=== PATIENT | male | born 1955 | race Caucasian/White ===

== ENCOUNTER 2018-03-13 09:46 | Emergency (ER) | payer OTHER ==
[2018-03-13 09:52] VITALS: RESP 18
--- NOTE | 2018-03-13 10:34 | ED ---
General Adult HPI - General Chief complaint: Extremity Injury, Upper Stated complaint: lt shoulder injury Time Seen by Provider: 03/13/18 09:55 Source: patient, RN notes reviewed, old records reviewed Mode of arrival: ambulatory Limitations: no limitations - History of Present Illness Initial comments: 62-year-old male patient with past medical history of left proximal biceps tendon repair presents to ED after sustaining acute left upper arm injury. Patient states that yesterday he picked up a ladder and felt a pop in his left bicep region. Patient currently has pain in left bicep region. Patient has pain with flexion motions of left arm, feels as if he has decreased strength in left arm. Patient has no other complaints. Denies paresthesias. Patient stated no other injury. Patient denies chest pain, shortness of breath headache, change in vision, nausea vomiting diarrhea, fever chills. Systemic: Pt denies fatigue, myalgia, fever/chills, rash. Pt denies weakness, night sweats, weight loss. Neuro: Pt denies headache, visual disturbances, syncope or pre-syncope. HEENT: Pt denies ocular discharge or irritation, otalgia, rhinorrhea, pharyngitis or notable lymphadenopathy. Cardiopulmonary: Pt denies chest pain, SOB, heart palpitations, dyspnea on exertion. Abdominal/GI: Pt denies abdominal pain, n/v/d. : Pt denies dysuria, burning w/ urination, frequency/urgency. Denies new onset urinary or bowel incontinence. MSK: Pt denies myalgia. - Related Data Home Medications Medication Instructions Recorded Confirmed Naproxen Sodium [Aleve] 220 mg PO DAILY PRN 03/13/18 03/13/18 Allergies Allergy/AdvReac Type Severity Reaction Status Date / Time Penicillins AdvReac Unknown Verified 03/13/18 10:42 Review of Systems ROS Statement: Those systems with pertinent positive or pertinent negative responses have been documented in the HPI. ROS Other: All systems not noted in ROS Statement are negative. Past Medical History Past Medical History: Cancer Additional Past Medical History / Comment(s): Prostate Cancer 07/26 History of Any Multi-Drug Resistant Organisms: None Reported Past Surgical History: Orthopedic Surgery Additional Past Surgical History / Comment(s): vasectomy, carpal tunnel surgery , prostate cancer surgery Past Psychological History: No Psychological Hx Reported Smoking Status: Never smoker Past Alcohol Use History: Occasional Past Drug Use History: None Reported General Exam - General Exam Comments Initial Comments: Constitutional: NAD, AOX3, Pt has pleasant affect. HEENT: NC/AT, trachea midline, neck supple, no lymphadenopathy. Posterior pharynx non erythematous, without exudates. External ears appear normal, without discharge. Mucous membranes moist. Eyes PERRLA, EOM intact. There is no scleral icterus. No pallor noted. Cardiopulmonary: RRR, no murmurs, rubs or gallops, no JVD noted. Lungs CTAB in anterior and posterior holcomb. No peripheral edema. Abdominal exam: Abdomen soft and non-distended. Abdomen non-tender to palpation in all 4 quadrants. Bowel sounds active in LLQ. No hepatosplenomegaly. Neuro: CN II-XII grossly intact. MSK: Mild TTP to L belly of biceps muscle. No point tenderness at proximal or distal attachment. No echymosis. Full ROM and 5/5 stregnth at shoulder, full sensation. Full flexion/extension at elbow, pain with resisted flexion. Full sensation intact. Radial pulse +2 bilaterally. Capillary refill <2 seconds bilaterally. Limitations: no limitations Course Vital Signs 03/13/18 09:48 Temperature 97.9 F Pulse Rate 81 Respiratory 18 Rate Blood Pressure 157/78 O2 Sat by Pulse 99 Oximetry Medical Decision Making - Medical Decision Making 62-year-old male patient with past medical history of left proximal biceps tendon repair presents to ED after sustaining acute left upper arm injury. Patient states that yesterday he picked up a ladder and felt a pop in his left bicep region. Patient currently has pain in left bicep region. Patient has pain with flexion motions of left arm, feels as if he has decreased strength in left arm. Patient has no other complaints. Patient stated no other injury. Patient denies chest pain, shortness of breath headache, change in vision, nausea vomiting diarrhea, fever chills. MSK physical exam displayed Mild TTP to L belly of biceps muscle. No point tenderness at proximal or distal attachment. No echymosis. Full ROM and 5/5 stregnth at shoulder, full sensation. Full flexion/extension at elbow, pain with resisted flexion. Full sensation intact. Radial pulse +2 bilaterally. Capillary refill <2 seconds bilaterally. No pop or deformity, no gross deformity. Past medical history, HPI, physical exam suspicious for proximal biceps tendon rupture. Explained findings patient's verbalizes understanding. Plain film of left shoulder, humerus, elbow didn't display any acute fracture. Explained findings to patient. Offered patient by mouth pain medication for home, patient declined. Patient to be placed in sling and given orthopedic follow-up. Patient to keep arm in sling until orthopedic follow-up. Patient also followed PCP in 12 days. Patient to return to ED if any new signs or symptoms develop including worsening pain, loss of function, paresthesias, any other symptoms. Case discussed with Dr. Joaquin. Disposition Clinical Impression: Biceps tendon rupture, proximal Disposition: HOME SELF-CARE Condition: Good Instructions: Tendon Rupture (ED) Additional Instructions: Patient to adhere to previously discussed treatment plan and will take medication(s) as directed. Patient to follow up with PCP in 1-2 days. Patient to return to ED if symptoms do not improve. Is patient prescribed a controlled substance at d/c from ED?: No Referrals: Livia Decker PAC [REFERRING] - 1-2 days Edil Noriega MD [REFERRING] - 1-2 days Michel Amos MD [STAFF PHYSICIAN] - 1-2 days Time of Disposition: 11:21
--- NOTE | 2018-03-13 10:45 | XR ---
EXAMINATION TYPE: XR elbow complete LT, XR humerus LT DATE OF EXAM: 03/13/2018 CLINICAL HISTORY: Prior tendon injury. Left elbow pain after lifting injury. TECHNIQUE: Frontal, lateral and oblique images of the left elbow are obtained. 2 views of the left s houlder were obtained. COMPARISON: None FINDINGS: There is no acute fracture/dislocation evident in the left elbow or shoulder. No abnormal fat pad signs are seen. The overlying soft tissue appears unremarkable. Large enthesophyte is seen at the radial tuberosity at the insertion of the biceps tendon. IMPRESSION: There is no acute fracture or dislocation in the left elbow or shoulder. Large enthesoph yte at the insertion of the biceps tendon the radial tuberosity
--- NOTE | 2018-03-13 11:02 | XR ---
EXAMINATION TYPE: XR shoulder complete LT DATE OF EXAM: 03/13/2018 CLINICAL HISTORY: Right shoulder pain after injury TECHNIQUE: Three views of the right shoulder are obtained. COMPARISON: None. FINDINGS: There is no acute fracture/dislocation evident in the right shoulder. The acromioclavicul ar and glenohumeral joint spaces appear demonstrate mild arthropathy with marginal osteophytes of the acromioclavicular joint and greater tuberosity of the humeral head. The visualized ribs are intact and unremarkable. IMPRESSION: There is no acute fracture or dislocation in the right shoulder.
[2018-03-13 11:44] VITALS: BP 145/95; PULSE 69; TEMP 98.6
== END 2018-03-13 11:44 | disposition home or self-care (01) ==
LOC: EC 09:46
DX: S46.212A Strain of muscle, fascia and tendon of other parts of biceps, left arm, initial encounter (principal); Z88.0 Allergy status to penicillin; Z85.46 Personal history of malignant neoplasm of prostate; Z98.890 Other specified postprocedural states; Z53.29 Procedure and treatment not carried out because of patient's decision for other reasons; X50.0XXA Overexertion from strenuous movement or load, initial encounter
CPT/HCPCS: 99284

== ENCOUNTER → 2021-06-18 | Outpatient (CLI) | payer MEDICARE, BC ==
--- NOTE | 2021-06-18 13:54 | XR ---
EXAMINATION TYPE: XR chest 2V DATE OF EXAM: 06/18/2021 COMPARISON: NONE TECHNIQUE: PA and lateral views submitted. HISTORY: Presurgical FINDINGS: Heart size is normal. There is prominence the pulmonary arteries. No pleural effusion or pneumothorax . Biapical pleural thickening. Arthropathy of the shoulders. Coarsened interstitium. Degenerative salud nge of the spine. IMPRESSION: 1. Correlate for pulmonary arterial hypertension. Mild chronic interstitial lung disease in the diffe rential diagnosis correlate clinically.
[2021-06-18 14:18] LABS: Partial Thromboplastin Time 24.5 sec (22.0-30.0); Prothrombin Time 11.1 sec (9.0-12.0)
[2021-06-18 19:33] LABS: African American GFR (CKD) 102.1 (60.0-200.0); Albumin 4.6 g/dL (3.8-4.9); Albumin/Globulin Ratio 1.84 (1.60-3.17); Anion Gap 12.7 mmol/L (10.00-18.00); BUN/Creat Ratio 20.22 Ratio (12.00-20.00); Blood Urea Nitrogen 18.2 mg/dL (9.0-27.0); Calcium 9.6 mg/dL (8.7-10.3); Carbon Dioxide 24.3 mmol/L (20.0-27.5); Globulin 2.5 g/dL (1.6-3.3); Non-African American GFR(CKD) 88.1 (60.0-200.0); Potassium 4.8 mmol/L (3.5-5.5); Total Bilirubin 0.7 mg/dL (0.30-1.20); Total Protein 7.1 g/dL (6.2-8.2)
[2021-06-18 19:35] LABS: Basophils # (A) 0.08 X 10*3/uL (0.00-0.10); Eosinophils % (A) 1.3 %; HCT 45.7 % (39.6-50.0); HGB 15.1 g/dL (13.0-17.0); Immature Grans, Automated 0.3 %; Lymphocytes # (A) 1.51 X 10*3/uL (0.90-5.00); MCH 31.3 pg (27.0-32.0); MCV 94.8 fL (80.0-97.0); Mean Platelet Volume 10.7 fL (9.5-12.2); Monocytes # (A) 0.68 X 10*3/uL (0.20-1.00); Monocytes % (A) 8.6 %; NRBC Per 100 WBC 0 /100 WBCS (0.0-0.0); Neutrophils # (A) 5.54 X 10*3/uL (1.80-7.70); Neutrophils % (A) 69.8 %; Platelet Count 235 X 10*3/uL (140-440); RBC 4.82 X 10*6/uL (4.40-5.60); RDW 12.9 % (11.5-14.5); WBC 7.93 X 10*3/uL (4.50-10.00)
[2021-06-19 03:54] LABS: Appearance,Urine Clear (Clear); Bilirubin,Urine Negative (Negative); Blood,Urine Negative (Negative); Color,Urine Yellow (Yellow); Ketones,Urine Negative (Negative); Leukocyte Esterase,Urine Negative (Negative); Nitrite,Urine Negative (Negative); Protein,Urine Negative (Negative); Specific Gravity,Urine 1.019 (1.001-1.030); Urobilinogen,Urine 0.2 (0.2,1.0)
== END | disposition home or self-care (01) ==
LOC: LABPAT 13:16
PROVIDERS: ATTEND Orthopaedic Surgery Orthopaedic Surgery of the Spine
DX: Z01.812 Encounter for preprocedural laboratory examination (principal); M50.00 Cervical disc disorder with myelopathy, unspecified cervical region
CPT/HCPCS: 71046; 80053; 81003; 85025; 85610; 85730; 93005

== ENCOUNTER 2021-06-29 06:16 | Day surgery (SDC) | payer MEDICARE, BC ==
[2021-06-24 13:11] VITALS: BMI 26.8
[~2021-06-29 06:16] MED LIST: CLINDAMYCIN 900 MG in DEXTROSE 5% IN WATER 50 ML IVPB PRN
[2021-06-29] MEDS ORDERED: LIDOCAINE 1% (10MG/ML) FOR IV START INTRADERMA PRN (06:29)
[2021-06-29] MEDS ORDERED: DEXAMETHASONE SOD PHOSPHATE 4 MG/ML 1 ML VIAL IV ONE (06:29)
[2021-06-29] MEDS ORDERED: MIDAZOLAM 2 MG/2 ML VIAL IV PRN (06:29)
[2021-06-29] MEDS ORDERED: ONDANSETRON 4 MG/2 ML VIAL IVP ONE (06:29)
[2021-06-29] MEDS ORDERED: HYDROmorphone 0.5 MG/0.5 ML SYRINGE IVP PRN ×2 (06:29→10:50)
[2021-06-29] MEDS: LACTATED RINGERS 1,000 ML IV SCH (07:07)
[2021-06-29] MEDS ORDERED: PROPOFOL 10 MG/ML 20 ML VIAL IV ONE (08:05)
[2021-06-29] MEDS ORDERED: DEXAMETHASONE SOD PHOSPHATE 10 MG/ML 1 ML VIAL ONE (08:05)
[2021-06-29] MEDS ORDERED: ePHEDrine 50 MG/ML 1 ML VIAL ONE (08:05)
[2021-06-29] MEDS ORDERED: GLYCOPYRROLATE 0.2 MG/ML 2 ML VIAL ONE (08:05)
[2021-06-29] MEDS ORDERED: ROCURONIUM 10 MG/ML (5 ML VIAL) IV ONE (08:05)
[2021-06-29] MEDS ORDERED: PHENYLEPHRINE-0.9% NACL SYG 1,000 MCG/10 ML SYRINGE ONE (08:05)
[2021-06-29] MEDS ORDERED: MIDAZOLAM 2 MG/2 ML VIAL ONE (08:05)
[2021-06-29] MEDS ORDERED: NEOSTIGMINE 1 MG/ML 10 ML VIAL ONE (08:05)
[2021-06-29] MEDS ORDERED: fentaNYL (PF) 50 MCG/ML 2 ML AMP ONE (08:05)
[2021-06-29] MEDS ORDERED: KETAMINE 10 MG/ML 20 ML VIAL ONE (08:05)
[2021-06-29] MEDS ORDERED: WATER FOR INJECTION, STERILE 10 ML VIAL IV ONE (08:05)
[2021-06-29] MEDS ORDERED: BUPIVACAIN-EPI 0.25%-1:200,000 30 ML VIAL SQ ONE ×2 (08:07→08:45)
[2021-06-29] MEDS ORDERED: THROMBIN (RECOMBINANT) 5,000 UNIT VIAL TOPICAL ONE ×2 (08:07→08:45)
[2021-06-29] MEDS ORDERED: GELATIN SPONGE,ABSORB (SMALL) 1 EACH SPONGE TOPICAL ONE ×2 (08:08→08:45)
[2021-06-29] MEDS ORDERED: ceFAZolin 1,000 MG in SODIUM CHLORIDE 0.9% 1,000 ML IRRIGATION ONE (08:10)
--- NOTE | 2021-06-29 09:33 | XR ---
EXAMINATION TYPE: XR cervical spine 1V DATE OF EXAM: 06/29/2021 COMPARISON: NONE HISTORY: 66-year-old male needle placement TECHNIQUE: Single intraoperative crosstable lateral view FINDINGS: Patient is intubated. A single surgical needle enters the anterior C4-C5 disc interspace. IMPRESSION: Surgical needle entering the anterior C4-C5 disc interspace.
[2021-06-29] MEDS ORDERED: LACTATED RINGERS 1,000 ML IV ONE (09:34)
[2021-06-29] MEDS ORDERED: ACETAMINOPHEN TAB 325 MG TAB PO PRN (10:50)
[2021-06-29] MEDS ORDERED: BENZOCAINE/MENTHOL LOZENG 1 EACH LOZENGE MUCOUS MEM PRN (10:50)
[2021-06-29] MEDS ORDERED: HYDROmorphone 1 MG/ML 1 ML SYRINGE IVP PRN (10:50)
[2021-06-29] MEDS ORDERED: CYCLOBENZAPRINE 5 MG TAB PO PRN (10:50)
[2021-06-29] MEDS ORDERED: ONDANSETRON 4 MG/2 ML VIAL IVP PRN (10:50)
--- NOTE | 2021-06-29 11:00 | P.OP ---
Date of Procedure: 06/29/21 Preoperative Diagnosis: Cervical myelopathy, upper extremity weakness, severe cervical stenosis C3 4 C4 5 C5 6, degenerative disc disease, neck pain, upper extremity radiculopathy Postoperative Diagnosis: Same Anesthesia: GETA Pathology: none sent Condition: stable Disposition: PACU Description of Procedure: BRIEF OPERATIVE NOTE Preoperative Diagnosis:Cervical myelopathy, upper extremity weakness, severe cervical stenosis C3 4 C4 5 C5 6, degenerative disc disease, neck pain, upper extremity radiculopathy Postoperative Diagnosis:Cervical myelopathy, upper extremity weakness, severe cervical stenosis C3 4 C4 5 C5 6, degenerative disc disease, neck pain, upper extremity radiculopathy Procedure: Anterior cervical decompression discectomy and fusion C3 4 C4 5 C5 6 Placement of interbody graft C3 4 C4 5 C5 6 Application of anterior cervical plate C3 4 5 and 6 Surgeon: Dr. Serra [employer] Worker: Charlee Garcia is present throughout the entire the case persistence during positioning, dissection, exposure, visualization, and all crucial elements of the case as well as closure. Anesthesia: General anesthesia per Dr. Miguel Estimated blood loss: Approximately 75 mL Complications: None apparent none apparent Components implanted: K2M Franklin anterior cervical plate system with screws and Vikos interbody allograft bone graft and 1 mL of DBX bone graft Disposition: To recovery room in good stable condition. OPERATIVE INDICATIONS The patient has had long-standing issues in their neck and upper extremities. He's been having worsening issues particularly in his right upper extremity with evidence of weakness and myelopathic symptoms. This is been progressive for him over the years and we saw him recently in regards to his issues at his upper extremity. His found evidence of severe stenosis at C3 4 C4 5 and C5 6 which correlated with his symptoms and with his myelopathy. We discussed with him the fact that he may have permanent logic loss function loss but that his symptoms may likely progress if we are to leave the stenosis intact at his cervical spine. The patient has been through conservative treatment. He was having worsening of his symptoms overall. We discussed various treatment options including surgery, and the patient wishes to proceed with surgery We discussed the risk, patient's alternatives and benefits of surgery including but not limited to, risk of bleeding risk of infection, risk of need for further surgery, risk of decreased, loss of motion, muscle function, malunion nonunion, hardware failure, nerve damage, paralysis, heart attack, and . OPERATIVE SUMMARY After discussing all the risks, patient alternatives and benefits at length, the patient elected to proceed with surgical intervention, signed informed consent, and presented for their procedure. The patient was seen and examined in the preoperative holding area and the surgical site was marked. The patient was given antibiotics and brought to the operating room. The patient was positioned on the operating room table in a supine position being careful to pad any bony prominences and pressure points. The patient was sedated and intubated by anesthesia in standard fashion. Once the airway and C- spine were stabilized the patient's arms were padded and tucked at her side, with her shoulders gently taped. The head was placed in a donut pad with the neck in good neutral alignment and position. We were careful to maintain the patient's cervical spine and good neutral alignment and position throughout. The patient was prepped and draped in a normal standard fashion. An appropriate timeout and keystone protocol performed. We were able to proceed with the surgery. The local wound area was infiltrated with local anesthetic. An incision was made transversely approximately 2-1/2 cm over the appropriate levels at C4 5. Dissection was taken down subcutaneously to the level of the platysma which was split in line with its fibers. Dissection was taken with a carotid approach, with the trachea and esophagus medial and the carotid sheath laterally. We dissected down to the anterior surface of the vertebral bodies. Intraoperative x-ray was taken which showed a marker at the appropriate level of C4 5. With the appropriate level positively confirmed, we were able to proceed with discectomy at the appropriate levels. All of the operative levels were exposed appropriately. The patient had all their twitches back, and there was no evidence of recurrent laryngeal issue. The wound was copiously irrigated and suctioned dry as had been done periodically throughout the case. At the appropriate level/levels, I started at C3 4 and then moved to C4-5 and then to C5 6, I established an annulotomy with an 11 blade scalpel. A discectomy was performed with a combination of pituitary rongeurs, curettes, a high-speed bur, and Kerrison rongeurs. There is severe disc height loss and large osteophytes which were removed. The posterior longitudinal ligament was taken down as were any posterior osteophytes. There had been severe evidence of central and bilateral foraminal stenosis which was remedied with the decompression and discectomy. This gave good central and bilateral foraminal decompression. There is no evidence of any dural tear or leak. The endplates were prepared with a high-speed bur. With the endplates in good parallel position, I was able to size for the appropriate size interbody graft. The wound was irrigated and suctioned dry the graft was prepared and malleted into position. It had good alignment and position with the anterior surface flush with the anterior surface of the vertebral bodies. This was done similarly the appropriate levels, first at C3 4 and then at C4 5 and C5 6. With the grafts intact, I was able to measure and contour and appropriate sized plate. The plate was positioned at the midline over the appropriate levels from C3 to C6. Screw holes were established with a hand drill and drill guide. Screws were placed in good alignment and position with excellent bony purchase. They were seated under the locking device. The construct was checked and found to be stable. Intraoperative x-ray was taken which showed good alignment and position of the implants at the appropriate levels. There was no evidence of any dural tear or leak. Good hemostasis was maintained. The wound was copiously irrigated and suctioned dry as had been done periodically throughout the case. The platysma was closed with absorbable suture. The subcutaneous tissue was closed. The subcuticular tissue was closed with absorbable suture. The wound was cleaned and dried and dressed appropriately. A soft cervical collar was placed appropriately. The patient was woken up by anesthesia, extubated, transferred back gently to their hospital bed and brought to the recovery room in good stable condition. The patient will be admitted to the hospital for appropriate postoperative care, medical management and monitoring. We will continue to follow them closely about the postoperative course.
--- NOTE | 2021-06-29 12:00 | XR ---
EXAMINATION TYPE: XR cervical spine 1V DATE OF EXAM: 06/29/2021 COMPARISON: NONE HISTORY: 66-year-old male postsurgical evaluation TECHNIQUE: Single crosstable intraoperative lateral view FINDINGS: The patient remains intubated. Interval placement of C3-C6 ACDF which appears to be in appropriate po sition. Alignment maintained. IMPRESSION: Interval placement of C3-C6 ACDF.
[2021-06-29] MEDS: SODIUM CHLORIDE 0.9% 1,000 ML IV SCH (16:02)
[2021-06-29] MEDS: CLINDAMYCIN 900 MG in DEXTROSE 5% IN WATER 50 ML IVPB SCH ×2 (16:02)
[2021-06-29] MEDS: HYDROcodone/APAP 5-325MG 1 EACH TAB PO PRN (18:34)
[2021-06-29] MEDS ORDERED: GABAPENTIN 300 MG CAP PO SCH (21:00)
[2021-06-30] MEDS: CLINDAMYCIN 900 MG in DEXTROSE 5% IN WATER 50 ML IVPB SCH ×2 (02:10)
[2021-06-30] MEDS: SODIUM CHLORIDE 0.9% 1,000 ML IV SCH (02:11)
[2021-06-30 04:51] VITALS: BP 152/80; PULSE 60; RESP 16; TEMP 97.5
[2021-06-30] MEDS: LACTATED RINGERS 1,000 ML IV SCH (04:57)
[2021-06-30] MEDS: HYDROcodone/APAP 5-325MG 1 EACH TAB PO PRN (07:50)
--- NOTE | 2021-06-30 08:19 | P.DS ---
Providers Date of admission: 06/29/21 Attending physician: Isabela Serra Primary care physician: [facility] Course: The patient presented on the day of admission as per their operative note. He had severe cervical stenosis with cervical myelopathy and upper extremity weakness. He feels he is making improvement since his surgery. He feels his hand is already making some benefit. His neck is doing well. His pains controlled with oral medications. His tolerating soft diet. Physical Exam The incision site is clean dry and intact. There is no erythema no drainage. There is no purulence no evidence of infection. The incision sites clean his neck is soft and supple without any swelling Abdomen soft and nontender. Chest has good excursion with deep inspiration and expiration. The patient has active and passive range of motion intact at the upper and lower extremities. There is no acute change in neurologic status. He feels he has better motion in his hands and fingers but is difficult to determine thus far. Hospital Course Postoperative day #1 status post anterior cervical decompression with discectomy and fusion C3 4 C4 5 C5 6 for his severe cervical stenosis with cervical myelopathy and upper extremity radiculopathy with weakness. Patient feels that he is making some progress already in terms of his neurologic function is upper extremity. The patient has been making good progress postoperatively. They have completed the prophylactic antibiotics without any signs or symptoms of infection. The patient has been able to advance their diet, and is tolerating diet adequately. The pain was initially controlled with IV medications and is now controlled appropriately with oral medications. The patient has been able to increase their mobilization. The patient has progressed appropriately. I think they are in good stable condition for discharge today. They will be sent home with appropriate prescriptions. I answered their questions to the best of my ability in a language that they can understand and they are agreeable with the plan. They will follow up as directed in approximately 2 weeks or sooner if he is having problems. Patient Condition at Discharge: Good Plan - Discharge Summary Discharge Rx Participant: Yes New Discharge Prescriptions: New HYDROcodone/APAP 5-325MG [Provo 5] 1 each PO Q4HR PRN #42 tab PRN Reason: Pain No Action Naproxen Sodium [Aleve] 440 mg PO DAILY PRN PRN Reason: Pain Gabapentin [Neurontin] 300 mg PO HS Propranolol HCl [Inderal] 60 mg PO DAILY Ascorbic Acid [Vitamin C chew] 500 mg PO DAILY Discharge Medication List Naproxen Sodium [Aleve] 440 mg PO DAILY PRN 03/13/18 [History] Ascorbic Acid [Vitamin C chew] 500 mg PO DAILY 06/24/21 [History] Gabapentin [Neurontin] 300 mg PO HS 06/24/21 [History] Propranolol HCl [Inderal] 60 mg PO DAILY 06/24/21 [History] HYDROcodone/APAP 5-325MG [Provo 5] 1 each PO Q4HR PRN #42 tab 06/29/21 [Rx] Follow up Appointment(s)/Referral(s): Isabela Serra DO [Doctor of Osteopathic Medicine] - 2 Weeks Activity/Diet/Wound Care/Special Instructions: Keep site clean. May shower with waterproof Tegaderm intact. Do not soak in a tub. After 72 hours postoperatively, patient May remove dressing and then may shower with area uncovered. Leave glue intact and allow it to fray off on its own. May ambulate as tolerated. Avoid heavy or rigorous activity. No repetitive bending twisting or lifting. No overhead work. Discharge Disposition: HOME SELF-CARE
[2021-06-30] MEDS ORDERED: PROPRANOLOL 20 MG TAB PO SCH (09:00)
[2021-06-30] MEDS ORDERED: SENNOSIDES-DOCUSATE SODIUM 1 EACH TAB PO SCH (09:00)
[2021-06-30] MEDS ORDERED: ASCORBIC ACID 500 MG TAB PO SCH (09:00)
== END 2021-06-30 11:16 | disposition home or self-care (01) ==
LOC: OR 06:16 → 5NMEDONC 10:45 → OR 06-30 11:16
PROVIDERS: ATTEND Orthopaedic Surgery Orthopaedic Surgery of the Spine
DX: M50.01 Cervical disc disorder with myelopathy, high cervical region (principal); M48.02 Spinal stenosis, cervical region; M54.12 Radiculopathy, cervical region; G95.89 Other specified diseases of spinal cord; Z79.899 Other long term (current) drug therapy; Z88.0 Allergy status to penicillin; Z85.828 Personal history of other malignant neoplasm of skin; Z85.46 Personal history of malignant neoplasm of prostate; Z98.890 Other specified postprocedural states; Z98.52 Vasectomy status; Z80.3 Family history of malignant neoplasm of breast; Z80.8 Family history of malignant neoplasm of other organs or systems; Z82.49 Family history of ischemic heart disease and other diseases of the circulatory system
CPT/HCPCS: 72020; 22551; 22552 ×2; 20930; 20936; C1713 ×2; C1762; J2250; J1100; J2710; J2405; J0690; J3010; J2370; J2704; J1170

== ENCOUNTER → 2022-11-05 | Outpatient (CLI) | payer MEDICARE, BC | END | disposition home or self-care (01) | LOC: LABPAT 11:56 | PROVIDERS: ATTEND Pediatrics | DX: Z01.812 Encounter for preprocedural laboratory examination (principal); Z22.322 Carrier or suspected carrier of Methicillin resistant Staphylococcus aureus | CPT/HCPCS: 87070 ==

== ENCOUNTER 2022-11-10 05:50 | Inpatient (IN) | payer MEDICARE, BC ==
[2022-11-04 12:58] VITALS: BMI 26.6
[~2022-11-10 05:50] MED LIST changes: -CLINDAMYCIN 900 MG in DEXTROSE 5% IN WATER 50 ML IVPB PRN; +ceFAZolin 1,000 MG in SODIUM CHLORIDE 0.9% IRRIGATIO 1,000 ML IRRIGATION PRN
[2022-11-10] MEDS ORDERED: droPERidol 5 MG/2 ML VIAL IVP ONE (06:18)
[2022-11-10] MEDS ORDERED: ONDANSETRON 4 MG/2 ML VIAL IVP ONE (06:18)
[2022-11-10] MEDS ORDERED: LIDOCAINE 1% (10MG/ML) FOR IV START INTRADERMA PRN (06:18)
[2022-11-10] MEDS: LACTATED RINGERS 1,000 ML IV SCH (06:50)
[2022-11-10] MEDS ORDERED: BUPIVACAINE (PF) 0.5% 30 ML VIAL SQ ONE ×2 (08:17)
[2022-11-10] MEDS ORDERED: LIDOCAINE 2%-EPI 1:100,000 20 ML VIAL SQ ONE ×2 (08:17)
[2022-11-10] MEDS ORDERED: GELATIN SPONGE,ABSORB (LARGE) 1 EACH SPONGE MISCELLANE ONE (08:25)
[2022-11-10] MEDS ORDERED: THROMBIN (BOVINE) 5,000 UNIT VIAL MISCELLANE ONE (08:26)
[2022-11-10] MEDS ORDERED: LACTATED RINGERS 1,000 ML IV ONE (08:54)
[2022-11-10] MEDS ORDERED: HYDROmorphone 0.5 MG/0.5 ML SYRINGE IVP PRN (12:20)
[2022-11-10] MEDS ORDERED: diazePAM 5 MG TAB PO PRN (12:20)
[2022-11-10] MEDS ORDERED: BENZOCAINE/MENTHOL LOZENG 1 EACH LOZENGE MUCOUS MEM PRN (12:20)
[2022-11-10] MEDS ORDERED: SENNOSIDES-DOCUSATE SODIUM 1 EACH TAB PO PRN (12:21)
[2022-11-10] MEDS ORDERED: MAGNESIUM HYDROXIDE 2,400 MG/30 ML CUP PO PRN (12:21)
[2022-11-10] MEDS ORDERED: traMADol 50 MG TAB PO PRN (12:21)
[2022-11-10] MEDS ORDERED: ONDANSETRON 4 MG/2 ML VIAL IVP PRN (12:21)
--- NOTE | 2022-11-10 12:35 | P.OP ---
Date of Procedure: 11/10/22 Preoperative Diagnosis: Grade 3 spondylolisthesis L5-S1, severe spinal stenosis L4 5 L5-S1, low back pain, lower extremity radiculopathy, degenerative disc disease, facet arthrosis, spondylolysis Postoperative Diagnosis: Same Anesthesia: GETA Pathology: none sent Condition: stable Disposition: PACU Description of Procedure: DESCRIPTION OF PROCEDURE(S): BRIEF OPERATIVE NOTE Preoperative Diagnosis: Grade 3 spondylolisthesis L5-S1, severe spinal stenosis L4 5 L5-S1, low back pain, lower extremity radiculopathy, degenerative disc disease, facet arthrosis, spondylolysis Postoperative Diagnosis:Grade 3 spondylolisthesis L5-S1, severe spinal stenosis L4 5 L5-S1, low back pain, lower extremity radiculopathy, degenerative disc disease, facet arthrosis, spondylolysis Procedure: Laminectomy and decompression L4 5 L5-S1 with wide bilateral foraminotomy and facetectomy Minimally invasive Posterior lateral decompression and facet fusion L4 5 L5-S1 Minimally invasive Transforaminal lumbar interbody fusion for a 360 fusionL4 5 L5-S1 Discectomy for decompressionL4 5 L5-S1 Placement of interbody graftL4 5 L5-S1 Local autogenous bone grafting L4 5 and S1 Harvesting of bone marrow aspirate via The pedicle of L4 on the right Use of Cell Saver Use of bone graft extenders Surgeon: Dr. Serra Industrial Psychology Professor: Jayant HERRERA who is present throughout the entire the case persistence during positioning, dissection, exposure, visualization, and all crucial elements of the case as well as closure. Anesthesia: General anesthesia Estimated blood loss: Approximately 375 mL Complications: None apparent Components implanted: K2M minimally invasive [place] pedicle screw system with screws measuring 6.5 mm in diameter with 2 rods and a [place] interbody cage and a peek interbody cage filled with local autogenous bone graft with supplemental allograft bone graft Disposition: To recovery room in good stable condition. OPERATIVE INDICATIONS The patient has had long-standing issues in their lower back and lower extremities. He is having worsening pain despite aggressive conservative treatment. He was found have severe changes low back with degenerative scoliosis and a high-grade spondylolisthesis which correlate well with his low back and lower extremity symptoms with significant stenosis correlated with his lower extremity radiculopathy as well. The patient has been through conservative treatment. He is not having any prolonged benefit despite aggressive conservative treatment and as well as chemotherapy and interventional pain management. We discussed various treatment options including surgery, and the patient wishes to proceed with surgery We discussed the risk, patient's alternatives and benefits of surgery including but not limited to, risk of bleeding risk of infection, risk of need for further surgery, risk of decreased, loss of motion, muscle function, malunion nonunion, hardware failure, nerve damage, paralysis, heart attack, blindness and . OPERATIVE SUMMARY After discussing all the risks, patient alternatives and benefits at length, the patient elected to proceed with surgical intervention, signed informed consent, and presented for their procedure. The patient was seen and examined in the preoperative holding area and the surgical site was marked. The patient was given antibiotics and brought to the operating room. The patient was sedated and intubated by anesthesia in standard fashion. The patient was positioned on to the operating room table in a prone position on the appropriate frame which was well-padded and well molded. We were careful to pad any bony prominences and pressure points. We were careful to maintain the patient's cervical spine and good neutral alignment and position throughout. The patient was prepped and draped in a normal standard fashion. An appropriate timeout and keystone protocol performed. We were able to proceed with the surgery. The local wound area was infiltrated with local anesthetic. I was able utilize C-arm guidance to establish appropriate position over the pedicles bilaterally at the appropriate levels at L4-L5 and S1. With the appropriate levels confirmed was able to make small stab incisions over the appropriate pedicle sites bilaterally. Utilizing C-arm in his house able to establish a Jamshidi needle over the lateral aspect of the pedicle and advanced the trocar into the pedicle being careful not to breech superiorly inferiorly medially or laterally. Position was confirmed regularly with AP and lateral images on C-arm. I was able to establish the trocar into the pedicle appr opriately into the posterior aspect of the vertebral body bilaterally at the appropriate levels at L4-L5 and S1. This was done at each of the pedicle positions and each of the vertebrae. I was able place the guidewire into the trocar and into the vertebral body appropriately under C-arm guidance. Dissection was taken down over the wire to the appropriate starting position for the screw placed. The appropriate length screw was chosen, threaded over the guidewire and screwed appropriately into the pedicle and vertebral body under C- arm guidance in excellent alignment and position with good bony purchase. This is done at each of the screw sites at the appropriate levels at L4-L5 and S1. The patient has high-grade listhesis at L5-S1 and we ran another intraoperative VT spin to confirm position and placement to have good alignment and good position at the pedicles of L4-L5 and S1 bilaterally With the screws intact I extended the incision to connect the screw hole sites on the most symptomatic side on the right. I dissected down to establish access over the pars and lamina to the base of the spinous process. I was able to expose the facet joint. The capsule the facet was taken down and showed some facet arthrosis at the joint. I was able to use a combination of curettes and Kerrison rongeurs and a high-speed drill to take down the facet joint and do a facetectomy. Partial laminectomy was also performed. I was able get excellent foraminal decompression and central decompression with undermining across midline to perform a laminectomy centrally and contralaterally at L4 5 and L5- S1. As able get good central decompression. The ligamentum flavum was taken down to further decompress centrally and at bilateral neural foramen. I was able to expose the disc space and visualize the traversing nerve root. Note was made of some disc protrusion at the level causing further compression of the nerve root. I was able to establish a annulotomy at the appropriate level p rotecting soft tissue and neural structures. Note was made of some disc desiccation at the disc. I performed a complete discectomy with accommodation of curettes and rasps and scrapers. I was able get good endplate preparation at the disc space. The approach at L5-S1 was of more significant difficulty given the angulation and this very listhesis and disc height loss over I was able get excellent access without compromising the space for the neural structures. I sized for the appropriate size interbody spacer protecting the soft tissue and neural structures. The wound was copiously irrigated and suctioned dry. There is no evidence of any dural tear or leak. I was able to pack the disc space with local autogenous bone graft as well as a small amount of bone graft which was also placed into the interbody cage itself. Protecting the soft tissue structures and neural structures I was able place the interbody cage in good alignment and good position with good fit and fill at the interbody space. This was was confirmed with C-arm guidance both at L5-S1 and then at L4 5. Good hemostasis maintained. There is no evidence of any dural tear or leak. The wound was irrigated and suctioned dry. With the hardware intact, intraoperative C-arm imaging was again taken which showed good alignment and position of the hardware at the appropriate levels at L4-L5 and S1. We were then able to measure, contour and place the rods and appropriate hardware bilaterally. I was able to place capcrews, tighten them down, and torque them with the torque screwdriver appropriately. With this intact I was able to place the local autogenous bone graft with additional bone graft enhancer as necessary into the posterior lateral gutters over the decorticated transverse processes. The remainder of the bone graft was placed over the facet joint on the contralateral side after taking down the facet joint capsule. With the bone graft intact, a stable construct, and good decompression at the appropriate levels, we were able to proceed with closure. Good hemostasis was maintained. There is no evidence of dural tear or leak. The fascia was closed for a watertight closure. he subcuticular tissue was closed with absorbable suture. The wound was cleaned and dried and dressed with the appropriate dressing. The drapes were broken down. The patient was gently rolled back onto their hospital bed being careful to maintain their cervical spine and good neutral alignment and position. They were woken up by anesthesia, extubated, and brought to the recovery room in good stable conditio n. The patient will be admitted to the hospital for appropriate postoperative care, medical management and monitoring. We will continue to follow them closely about the postoperative course.
[2022-11-10] MEDS: HYDROmorphone 0.5 MG/0.5 ML SYRINGE IVP PRN ×3 (12:40→13:17)
[2022-11-10] MEDS: HYDROmorphone 1 MG/ML 1 ML SYRINGE IVP PRN ×2 (14:46→18:17)
[2022-11-10] MEDS: CYCLOBENZAPRINE 10 MG TAB PO PRN (14:47)
[2022-11-10] MEDS: SODIUM CHLORIDE 0.9% 1,000 ML IV SCH (15:52)
--- NOTE | 2022-11-10 17:27 | FL ---
Intraoperative/procedural fluoroscopic services were provided. Total fluoroscopy time is 0.41 minutes with a total of 4 submitted images to PACS. Please see the operative/procedural note for further det ails. DAP: 3252.97 mGym2
--- NOTE | 2022-11-10 19:15 | P.CONS ---
History of Present Illness - Reason for Consult Consult date: 11/10/22 Medical management Requesting physician: Isabela Serra - Chief Complaint Left knee surgery - History of Present Illness This is a pleasant 67-year-old patient who follows with Dr. Flavio Leon. Patient's had chronic low back pain. With radiation down the right leg with neuropathy. Patient today has undergone surgery by Dr. Ivey. Postprocedure having pain at the operative site. Laying in bed. Patient does take Inderal for tremors. And also takes Zyrtec for what appears to be ALLERGIC rhinitis. Currently no nausea vomiting. No chest pain or shortness of breath. Patient does drink 5-6 beers a day for many years. Review of systems: GEN.: None EYES: None HEENT: None NECK: None RESPIRATORY: None CARDIOVASCULAR: None GASTROINTESTINAL: None GENITOURINARY: None MUSCULOSKELETAL: As above LYMPHATICS: None HEMATOLOGICAL: None PSYCHIATRY: None NEUROLOGICAL: Tremor Past medical history to include: Tremors, ALLERGIC rhinitis, prostate cancer, Social history: Drinks 5-6 beers a day. . Used to work as a salesperson in construction. No smoking. Physical examination: VITAL SIGNS: 97.6, 55, 19, 127/72, 91% room air GENERAL: BMI 28.5, laying in bed awake flushed facies. EYES: Pupils equal. Conjunctiva normal. HEENT: External appearance of nose and ears normal, oral cavity grossly normal. NECK: JVD not raised; masses not palpable. HEART: First and second heart sounds are normal; no edema. LUNGS: Respiratory rate normal; clear to auscultation. ABDOMEN: Soft, nontender, liver spleen not palpable, no masses palpable. PSYCH: Alert and oriented x3; mood and affect normal. MUSCULOSKELETAL:No Clubbing/cyanosis;muscles-grossly intact NEUROLOGICAL: Cranial nerves grossly intact; no facial asymmetry, power and sensation grossly intact. LYMPHATICS: No lymph nodes palpable in the axilla and neck INVESTIGATIONS, reviewed in the clinical context: 10/29/2022: White count 7.0 hemoglobin 14.4 platelets 194 sodium 141 potassium 4.3 BUN 34 and 5 creatinine 0.8 LDL 86 Assessment and plan: -Grade 3 spondylolisthesis, L5-S1, severe spinal stenosis L4, L5-S1, low back pain, lower extremity radiculopathy,, DJD, facet arthrosis, spondylosis. Operative repair by Dr. Serra including decompression, fusion, grafting. Pain management -Tremors, chronic Inderal -Probable ALLERGIC rhinitis Zyrtec -Alcohol use disorder, drinks 5-6 beers a day Check LFTs in the morning. CIWA scale. Home medications resumed. CIWA scale. Discussed with patient. Thank you Dr. Serra Past Medical History Past Medical History: Cancer Additional Past Medical History / Comment(s): Prostate Cancer 07/26 History of Any Multi-Drug Resistant Organisms: None Reported Past Surgical History: Orthopedic Surgery Additional Past Surgical History / Comment(s): vasectomy, carpal tunnel surgery, prostate cancer surgery Past Anesthesia/Blood Transfusion Reactions: No Reported Reaction Past Alcohol Use History: Occasional - Past Family History Father Family Medical History: Cancer Mother Family Medical History: Cancer Medications and Allergies Home Medications Medication Instructions Recorded Confirmed Type Ascorbic Acid [Vitamin C chew] 500 mg PO DAILY 06/24/21 11/10/22 History Propranolol HCl [Inderal] 60 mg PO DAILY 06/24/21 11/10/22 History Cetirizine HCl [Zyrtec] 10 mg PO DAILY 11/04/22 11/10/22 History traMADol HCL 50 mg PO BID PRN 11/04/22 11/10/22 History Allergies Allergy/AdvReac Type Severity Reaction Status Date / Time Penicillins AdvReac passed out Verified 11/10/22 06:19 Physical Exam Vitals: Vital Signs Temp Pulse Resp BP Pulse Ox 11/10/22 14:10 97.6 F 55 L 19 127/72 91 L 11/10/22 13:23 54 L 16 111/53 99 11/10/22 13:08 58 L 16 134/62 100 11/10/22 12:53 64 16 153/70 100 11/10/22 12:38 72 16 148/72 99 11/10/22 12:23 97.9 F 74 14 153/76 100 11/10/22 06:50 157/83 11/10/22 06:26 97.6 F 53 L 16 173/95 98 Intake and Output 11/10/22 11/10/22 11/10/22 06:59 14:59 22:59 Intake Total 200 1252 Output Total 575 Balance 200 677 Intake: IV 200 1252 Output: Urine 200 Estimated Blood Loss 375 Other: Weight 75.3 kg
[2022-11-10] MEDS: HYDROcodone/APAP 5-325MG 1 EACH TAB PO PRN (21:14)
[2022-11-11] MEDS: HYDROmorphone 1 MG/ML 1 ML SYRINGE IVP PRN ×3 (00:18→21:51)
[2022-11-11] MEDS: LACTATED RINGERS 1,000 ML IV SCH (05:50)
[2022-11-11 06:15] LABS: ALT 26 U/L (4-49); AST 46 U/L (17-59); African American GFR (CKD) >90 (>60 ml/min/1.73 sqM); Albumin 3.7 g/dL (3.5-5.0); Albumin/Globulin Ratio 1.7; Alkaline Phosphatase 48 U/L (38-126); Anion Gap 8 mmol/L; Blood Urea Nitrogen 11 mg/dL (9-20); Calcium 8.5 mg/dL (8.4-10.2); Carbon Dioxide 25 mmol/L (22-30); Chloride 102 mmol/L (98-107); Globulin 2.2 g/dL; Glucose 92 mg/dL (74-99); Non-African American GFR(CKD) >90 (>60 ml/min/1.73 sqM); Potassium 4.3 mmol/L (3.5-5.1); Sodium 135 mmol/L (137-145); Total Bilirubin 1.4 mg/dL (0.2-1.3); Total Protein 5.9 g/dL (6.3-8.2)
[2022-11-11] MEDS: CYCLOBENZAPRINE 10 MG TAB PO PRN ×2 (06:28→15:34)
[2022-11-11 08:37] LABS: HCT 37.4 % (39.6-50.0); HGB 12.5 d/dL (13.0-17.0); MCH 32.1 pg (27.0-32.0); MCHC 33.4 d/dL (32.0-37.0); MCV 96.1 FL (80.0-97.0); Mean Platelet Volume 9.9 FL (9.5-12.2); NRBC Per 100 WBC 0 X 10*3/uL (0.00-0.01); Platelet Count 165 X 10*3/uL (140-440); RBC 3.89 X 10*6/uL (4.40-5.60); RDW 12.9 % (11.5-14.5); WBC 13.49 X 10*3/uL (4.50-10.00)
--- NOTE | 2022-11-11 09:04 | P.PN ---
Progress Note - Text Progress Note Date: 11/11/22 Postoperative day #1 Patient is seen and examined today at bedside. The patient has some pain around the surgical site as expected. The pain is a bit more than he had expected but the Pain is being controlled with medication. He has been able to tolerate some of his breakfast. He has not yet been out of bed. His Miller still intact. He says he still has pain at his right leg but his motion is intact. Physical Exam Afebrile with stable vital signs Abdomen is soft nontender. Chest has good excursion deep and space expiration The incision site is clean dry and intact. No erythema there is no purulence. Extremities have not had neurologic change from prior to surgery. He is able to slowly lift his legs up off the bed but he has pain in his back with us. He has sustained dorsal flexion plantar flexion. Calves and thighs were soft nontender without evidence of DVT. Assessment/Plan Postoperative day #1 status post minimally invasive decompression and fusion L4 5 L5-S1 for his severe stenosis with lower extremity radiculopathy and high- grade spondylolisthesis Patient is progressing as expected from the surgery. He is in significant pain overnight and this morning but it seems to be adequately controlled with IV and oral medication. He needed some encouragement this morning but feels that he will try to get up out of bed with therapy. His neurologic function is maintained but he still having significant pain. It is difficult to determine the amount of pain this early on. I discussed case with the nurse and therapy as well. We will discontinue his Miller this morning We will continue to increase the patient's mobilization with therapy. We will continue pain control with oral or IV medications. We'll continue to follow patient closely.
[2022-11-11] MEDS: SENNOSIDES-DOCUSATE SODIUM 1 EACH TAB PO SCH (09:23)
[2022-11-11] MEDS: ASCORBIC ACID 500 MG TAB PO SCH (09:23)
[2022-11-11] MEDS: LORATADINE 10 MG TAB PO SCH (09:23)
[2022-11-11] MEDS: PROPRANOLOL LA 60 MG CAP.SA.24H PO SCH (09:23)
[2022-11-11 12:18] LABS: Basophils # (A) 0.05 X 10*3/uL (0.00-0.10); Basophils % (A) 0.4 %; Eosinophils # (A) 0 X 10*3/uL (0.04-0.35); Eosinophils % (A) 0 %; Lymphocytes # (A) 0.65 X 10*3/uL (0.90-5.00); Lymphocytes % (A) 4.8 %; Monocytes # (A) 1.32 X 10*3/uL (0.20-1.00); Monocytes % (A) 9.8 %; Neutrophils # (A) 11.38 X 10*3/uL (1.80-7.70); Neutrophils % (A) 84.3 %; RBC Morphology Normal (Normal)
[2022-11-11] MEDS: SODIUM CHLORIDE 0.9% 1,000 ML IV SCH (15:07)
[2022-11-11] MEDS: HYDROcodone/APAP 5-325MG 1 EACH TAB PO PRN (15:33)
--- NOTE | 2022-11-11 16:14 | P.PN ---
Progress Note - Text Progress Note Date: 11/11/22 - Chief Complaint Number surgery Hospital course: This is a pleasant 67-year-old patient who follows with Dr. Flavio Leon. Patient's had chronic low back pain. With radiation down the right leg with neuropathy. Patient today has undergone surgery by Dr. Ivey. Postprocedure having pain at the operative site. Laying in bed. Patient does take Inderal for tremors. And also takes Zyrtec for what appears to be ALLERGIC rhinitis. Currently no nausea vomiting. No chest pain or shortness of breath. Patient does drink 5-6 beers a day for many years. 11/11/2022: Sitting up in a chair. No lower back pain present. Some pain in the right leg. Miller catheter was taken out this morning. Pending to urinate. No nausea vomiting. Did eat a little bit. Active Medications Hydrocodone Bitart/Acetaminophen (Hydrocodone/Apap 5-325mg 1 Each Tab) 1 each PO Q4HR PRN PRN Reason: Pain Last Admin: 11/11/22 15:33 Dose: 1 each Ascorbic Acid (Ascorbic Acid 500 Mg Tab) 500 mg PO DAILY [facility] Last Admin: 11/11/22 09:23 Dose: 500 mg Benzocaine/Menthol (Benzocaine/Menthol Lozeng 1 Each Lozenge) 1 each MUCOUS MEM Q4HR PRN PRN Reason: Sore Throat Cyclobenzaprine HCl (Cyclobenzaprine 10 Mg Tab) 10 mg PO TID PRN PRN Reason: Muscle Spasm Last Admin: 11/11/22 15:34 Dose: 10 mg Diazepam (Diazepam 5 Mg Tab) 5 mg PO QID PRN PRN Reason: Anxiety Hydromorphone HCl (Hydromorphone 0.5 Mg/0.5 Ml Syringe) 0.5 mg IVP Q4HR PRN PRN Reason: Pain Last Admin: 11/11/22 10:33 Dose: 0.5 mg Hydromorphone HCl (Hydromorphone 1 Mg/Ml 1 Ml Syringe) 1 mg IVP Q4HR PRN PRN Reason: Pain Last Admin: 11/11/22 04:36 Dose: 1 mg Lactated Ringer's (Lactated Ringers) 1,000 mls @ 20 mls/hr IV .Q24H VANESSA Last Admin: 11/11/22 05:50 Dose: Not Given Sodium Chloride (Saline 0.9%) 1,000 mls @ 50 mls/hr IV .Q20H [facility] Last Admin: 11/11/22 15:07 Dose: 50 mls/hr Lidocaine HCl (Lidocaine 1% (10mg/Ml) For Iv Start) 0.1 ml INTRADERMA PER PROTOCOL PRN PRN Reason: IV Start Loratadine (Loratadine 10 Mg Tab) 10 mg PO DAILY [facility] Last Admin: 11/11/22 09:23 Dose: 10 mg Magnesium Hydroxide (Magnesium Hydroxide 2,400 Mg/30 Ml Cup) 2,400 mg PO DAILY PRN PRN Reason: Constipation Ondansetron HCl (Ondansetron 4 Mg/2 Ml Vial) 4 mg IVP Q8HR PRN PRN Reason: Nausea And Vomiting Propranolol HCl (Propranolol La 60 Mg Cap.Sa.24h) 60 mg PO DAILY [facility] Last Admin: 11/11/22 09:23 Dose: 60 mg Senna/Docusate Sodium (Sennosides-Docusate Sodium 1 Each Tab) 1 each PO DAILY [facility] Last Admin: 11/11/22 09:23 Dose: 1 each Senna/Docusate Sodium (Sennosides-Docusate Sodium 1 Each Tab) 2 each PO DAILY PRN PRN Reason: Constipation Tramadol HCl (Tramadol 50 Mg Tab) 50 mg PO Q6HR PRN PRN Reason: Pain Scale 4 - 6 Past medical history to include: Tremors, ALLERGIC rhinitis, prostate cancer, Social history: Drinks 5-6 beers a day. . Used to work as a salesperson in construction. No smoking. Physical examination: VITAL SIGNS: 98.1, 74, 17, 144/82, 95% room air GENERAL: BMI 28.5, up in a chair EYES: Pupils equal. Conjunctiva normal. HEENT: External appearance of nose and ears normal, oral cavity grossly normal. NECK: JVD not raised; masses not palpable. HEART: First and second heart sounds are normal; no edema. LUNGS: Respiratory rate normal; clear to auscultation. ABDOMEN: Soft, nontender, liver spleen not palpable, no masses palpable. PSYCH: Alert and oriented x3; mood and affect normal. MUSCULOSKELETAL:No Clubbing/cyanosis;muscles-grossly intact. Dressing over the lower lumbar area incision site INVESTIGATIONS, reviewed in the clinical context: 11/11/2022: White count 13.4 hemoglobin 12.5 platelets 165 potassium 4.3 creatinine 0.69 10/29/2022: White count 7.0 hemoglobin 14.4 platelets 194 sodium 141 potassium 4.3 BUN 34 and 5 creatinine 0.8 LDL 86 Assessment and plan: -Grade 3 spondylolisthesis, L5-S1, severe spinal stenosis L4, L5-S1, low back pain, lower extremity radiculopathy,, DJD, facet arthrosis, spondylosis. Operative repair by Dr. Serra including decompression, fusion, grafting. Pain management -Tremors, chronic Inderal -Probable ALLERGIC rhinitis Zyrtec -Alcohol use disorder, drinks 5-6 beers a day Check LFTs. CIWA scale. His cousin patient. Continue current treatment plan. Thank you Dr. Serra
[2022-11-11] MEDS: diazePAM 5 MG TAB PO SCH (20:22)
[2022-11-12] MEDS: HYDROcodone/APAP 5-325MG 1 EACH TAB PO PRN ×4 (00:39→22:15)
[2022-11-12] MEDS: HYDROmorphone 1 MG/ML 1 ML SYRINGE IVP PRN ×2 (01:56→05:50)
[2022-11-12] MEDS: LACTATED RINGERS 1,000 ML IV SCH (04:54)
[2022-11-12 05:45] LABS: Basophils % (A) 0 %; Eosinophils % (A) 0 %; HCT 35.3 % (39.0-53.0); HGB 12.2 gm/dL (13.0-17.5); Lymphocytes # (A) 0.8 k/uL (1.0-4.8); Lymphocytes % (A) 6 %; MCH 32.9 pg (25.0-35.0); MCHC 34.7 g/dL (31.0-37.0); MCV 94.8 fL (80.0-100.0); Monocytes # (A) 0.9 k/uL (0-1.0); Monocytes % (A) 6 %; Neutrophils # (A) 12.1 k/uL (1.3-7.7); Neutrophils % (A) 86 %; Platelet Count 153 k/uL (150-450); RBC 3.72 m/uL (4.30-5.90); WBC 14.1 k/uL (3.8-10.6)
[2022-11-12] MEDS: SODIUM CHLORIDE 0.9% 1,000 ML IV SCH (06:01)
[2022-11-12 06:14] LABS: ALT 24 U/L (4-49); AST 43 U/L (17-59); African American GFR (CKD) >90 (>60 ml/min/1.73 sqM); Albumin/Globulin Ratio 1.4; Alkaline Phosphatase 49 U/L (38-126); Anion Gap 6 mmol/L; Blood Urea Nitrogen 12 mg/dL (9-20); Calcium 8.4 mg/dL (8.4-10.2); Carbon Dioxide 23 mmol/L (22-30); Chloride 101 mmol/L (98-107); Globulin 2.2 g/dL; Glucose 99 mg/dL (74-99); Non-African American GFR(CKD) >90 (>60 ml/min/1.73 sqM); Potassium 3.9 mmol/L (3.5-5.1); Sodium 130 mmol/L (137-145); Total Bilirubin 1.6 mg/dL (0.2-1.3); Total Protein 5.2 g/dL (6.3-8.2)
--- NOTE | 2022-11-12 09:08 | P.PN ---
Progress Note - Text Progress Note Date: 11/12/22 Orthopedic Spine History of present illness: Patient is a pleasant 67-year-old male who is seen and examined at the bedside following posterior lateral decompression and fusion performed Tuesday. He continues to have significant pain at the surgical sites of his lumbar spine as well as his right hip and lower extremity. He was able to transfer with assistance today bedside chair this morning. He is not currently complaining of any significant lower extremity weakness bilaterally. He does have chronic difficulty with his right ankle due to previous trauma. His Miller catheter was discontinued yesterday but he was unable to void independently. His Miller catheter has been reinserted. He has been seen by case management who is discussing possible discharged options. Patient is also been discussed in detail with case management. They state his discharge will depend on documentation from physical therapy. They're currently planning for discharge to [facility] in [place], [place] or possible discharged home with home health services. Patient has continued to be seen in exam by medicine for his other medical diagnoses. He continues to require IV and oral medications for pain control Physical Exam Lumbar Fusion: Status post surgical day number 2 Patient is awake, alert, and oriented 3 Vital signs stable Good chest excursion with deep inspiration and expiration Abdomen soft nontender Dorsiflexion, plantarflexion, and extensor hallucis longus positive sustained bilaterally No signs or symptoms of DVT; no calf pain; pneumatic cuffs intact bilateral lower extremities Chronic changes at the right ankle Optifoam dressings are dry and intact over the lumbar spine and right iliac crest; no erythema, purulence, or signs of infection Some dried blood over the surgical incision site of the lumbar spine Neurovascularly intact bilaterally lower extremities Miller catheter intact Assessment: Status post L4-5 and L5-S1 minimally invasive posterior lateral decompression a nd fusion with transforaminal lumbar interbody fusion Low back pain Right lower extremity radiculopathy Postoperative urinary retention, Miller catheter inserted History of prostate cancer Chronic tremors Alcohol use disorder Plan: 1. Ambulate as tolerated; work with Physical Therapy to increase mobilization 2. Continue pain control with IV and oral medications; will plan to begin weaning the patient off of IV narcotic medication in anticipation for discharge home in the next 1-2 days [facility] has been reviewed today, 11/12/2022. An "Opiod Start Talking" Form has been signed and placed in the patient's chart. A prescription has been written for hydrocodone 7.5 mg/25 mg, 1 tab every 6 hours as needed for acute pain, dispense #28. Patient is given a prescription for baclofen 10 mg, 1 tab, 3 times a day, as needed for muscle spasm, dispensed #90. Patient is given a prescription for Senokot-S, 1 tab twice a day, as needed for constipation, dispensed #60. Prescriptions are printed, signed, and placed in the patient's chart in anticipation for possible discharged to a rehabilitation facility. 3. Dressings to remain intact with Optifoam; patient may shower with dressings intact 4. Patient is having difficulty with urinary retention as well. He was unable to void independently yesterday after discontinuation of his Miller catheter. The Miller catheter has been reinserted. Currently, we will have him continue on bladder rest. We will plan to discontinue his Miller catheter tomorrow to see if he able to void independently. 5. Medical management can continue to manage patient for patient's other medical diagnoses 6. We will continue to follow the patient closely; depending on the patient's progress, we may plan for discharge home as early as tomorrow, We will continue to follow the patient closely; patient continues to have difficulty with mobilization and ambulation postoperatively. He has been working with physical therapy and is progressing but slowly. He has been seen by case management who is planning for discharge to [facility] in [place], [place] or possible home with home health care. He has been utilizing a walker. He continues to require IV and oral medications for pain control. I do not feel the patient is ready for discharge home. Patient will continue to remain in the hospital until his symptoms improve and his pain is better controlled. We will plan to have the patient be admitted to in patient status during his admission. Depending on his progress we patient may plan to be discharged tomorrow to a rehabilitation facility or possibly home with home health care tomorrow, 11/13/2022. 7. Patient can follow-up with Jayant Mchugh PA-C or Dr. Jerson Serra at [facility] in 2-3 weeks following discharge
[2022-11-12] MEDS: LORATADINE 10 MG TAB PO SCH (09:51)
[2022-11-12] MEDS: diazePAM 5 MG TAB PO SCH ×3 (09:51→22:15)
[2022-11-12] MEDS: SENNOSIDES-DOCUSATE SODIUM 1 EACH TAB PO SCH (09:51)
[2022-11-12] MEDS: ASCORBIC ACID 500 MG TAB PO SCH (09:51)
[2022-11-12] MEDS: PROPRANOLOL LA 60 MG CAP.SA.24H PO SCH (09:51)
[2022-11-12] MEDS: CYCLOBENZAPRINE 10 MG TAB PO PRN (12:03)
--- NOTE | 2022-11-12 18:20 | P.PN ---
Progress Note - Text Progress Note Date: 11/12/22 - Chief Complaint Number surgery Hospital course: This is a pleasant 67-year-old patient who follows with Dr. Flavio Leon. Patient's had chronic low back pain. With radiation down the right leg with neuropathy. Patient today has undergone surgery by Dr. Ivey. Postprocedure having pain at the operative site. Laying in bed. Patient does take Inderal for tremors. And also takes Zyrtec for what appears to be ALLERGIC rhinitis. Currently no nausea vomiting. No chest pain or shortness of breath. Patient does drink 5-6 beers a day for many years. 11/11/2022: Sitting up in a chair. No lower back pain present. Some pain in the right leg. Miller catheter was taken out this morning. Pending to urinate. No nausea vomiting. Did eat a little bit. 11/12/2022: Sitting up in a chair. Last night patient went into DTs. Valium was started. Schedule. CIWA scale. This morning. Making a bit better. Tremors present. Did walk a bit. present. Valium cutback to 2.5 mg 3 times a day. She was given to continue. IV fluids. Having operative site pain. Miller catheter to be reinserted last night for retention. Active Medications Hydrocodone Bitart/Acetaminophen (Hydrocodone/Apap 5-325mg 1 Each Tab) 1 each PO Q4HR PRN PRN Reason: Pain Last Admin: 11/12/22 17:48 Dose: 1 each Ascorbic Acid (Ascorbic Acid 500 Mg Tab) 500 mg PO DAILY VANESSA Last Admin: 11/12/22 09:51 Dose: 500 mg Benzocaine/Menthol (Benzocaine/Menthol Lozeng 1 Each Lozenge) 1 each MUCOUS MEM Q4HR PRN PRN Reason: Sore Throat Cyclobenzaprine HCl (Cyclobenzaprine 10 Mg Tab) 10 mg PO TID PRN PRN Reason: Muscle Spasm Last Admin: 11/12/22 12:03 Dose: 10 mg Diazepam (Diazepam 5 Mg Tab) 2.5 mg PO Q8H VANESSA Last Admin: 11/12/22 15:30 Dose: Not Given Hydromorphone HCl (Hydromorphone 0.5 Mg/0.5 Ml Syringe) 0.5 mg IVP Q4HR PRN PRN Reason: Pain Last Admin: 11/11/22 10:33 Dose: 0.5 mg Hydromorphone HCl (Hydromorphone 1 Mg/Ml 1 Ml Syringe) 1 mg IVP Q4HR PRN PRN Reason: Pain Last Admin: 11/12/22 05:50 Dose: 1 mg Sodium Chloride (Saline 0.9%) 1,000 mls @ 50 mls/hr IV .Q20H [facility] Last Admin: 11/12/22 06:01 Dose: Not Given Lidocaine HCl (Lidocaine 1% (10mg/Ml) For Iv Start) 0.1 ml INTRADERMA PER MARCELINA COL PRN PRN Reason: IV Start Loratadine (Loratadine 10 Mg Tab) 10 mg PO DAILY [facility] Last Admin: 11/12/22 09:51 Dose: 10 mg Magnesium Hydroxide (Magnesium Hydroxide 2,400 Mg/30 Ml Cup) 2,400 mg PO DAILY PRN PRN Reason: Constipation Ondansetron HCl (Ondansetron 4 Mg/2 Ml Vial) 4 mg IVP Q8HR PRN PRN Reason: Nausea And Vomiting Propranolol HCl (Propranolol La 60 Mg Cap.Sa.24h) 60 mg PO DAILY [facility] Last Admin: 11/12/22 09:51 Dose: 60 mg Senna/Docusate Sodium (Sennosides-Docusate Sodium 1 Each Tab) 1 each PO DAILY [facility] Last Admin: 11/12/22 09:51 Dose: 1 each Senna/Docusate Sodium (Sennosides-Docusate Sodium 1 Each Tab) 2 each PO DAILY PRN PRN Reason: Constipation Tramadol HCl (Tramadol 50 Mg Tab) 50 mg PO Q6HR PRN PRN Reason: Pain Scale 4 - 6 Past medical history to include: Tremors, ALLERGIC rhinitis, prostate cancer, Social history: Drinks 5-6 beers a day. . Used to work as a salesperson in construction. No smoking. Physical examination: VITAL SIGNS: 98.2, 74, 18, 132/83, 96% room air GENERAL: Up in a chair slightly flushed slightly slow EYES: Pupils equal. Conjunctiva normal. HEENT: External appearance of nose and ears normal, oral cavity grossly normal. NECK: JVD not raised; masses not palpable. HEART: First and second heart sounds are normal; no edema. LUNGS: Respiratory rate normal; clear to auscultation. ABDOMEN: Soft, nontender, liver spleen not palpable, no masses palpable. PSYCH: Slightly slow to respond but able to answer simple questions. MUSCULOSKELETAL:No Clubbing/cyanosis;muscles-grossly intact. Dressing over the lower lumbar area incision site NEUROLOGICAL: Tremors INVESTIGATIONS, reviewed in the clinical context: November 12: White count 1.1 hemoglobin 12.2 platelets 153 progression 3.9 creatinine 0.64 sodium 1:30. AST 43. ALT 24. Total bilirubin 1.6. 11/11/2022: White count 13.4 hemoglobin 12.5 platelets 165 potassium 4.3 creatinine 0.69 10/29/2022: White count 7.0 hemoglobin 14.4 platelets 194 sodium 141 potassium 4.3 BUN 34 and 5 creatinine 0.8 LDL 86 Assessment and plan: -Grade 3 spondylolisthesis, L5-S1, severe spinal stenosis L4, L5-S1, low back pain, lower extremity radiculopathy,, DJD, facet arthrosis, spondylosis. Operative repair by Dr. Serra including decompression, fusion, grafting. Pain management -Alcohol withdrawal syndrome: New diagnosis Started on Valium 5 mg every 8 yesterday. We'll cut back to 2.5 mg every 8 today. CIWA scale to continue. -Tremors, chronic Inderal -Probable ALLERGIC rhinitis Zyrtec -Alcohol use disorder, drinks 5-6 beers a day LFTs normal. CIWA scale. Discussed with at the bedside. Valium changed to 2.5 mg every 8 hours scheduled. CIWA scale to continue. IV fluids. Encourage oral intake. Thank you Dr. Serra
[2022-11-13] MEDS: SODIUM CHLORIDE 0.9% 1,000 ML IV SCH (04:58)
[2022-11-13] MEDS: ASCORBIC ACID 500 MG TAB PO SCH (08:27)
[2022-11-13] MEDS: HYDROcodone/APAP 5-325MG 1 EACH TAB PO PRN ×3 (08:27→22:02)
[2022-11-13] MEDS: SENNOSIDES-DOCUSATE SODIUM 1 EACH TAB PO SCH (08:28)
[2022-11-13] MEDS: LORATADINE 10 MG TAB PO SCH (08:28)
[2022-11-13] MEDS: PROPRANOLOL LA 60 MG CAP.SA.24H PO SCH (08:28)
[2022-11-13] MEDS: diazePAM 5 MG TAB PO SCH ×3 (08:28→22:02)
[2022-11-13] MEDS: TAMSULOSIN 0.4 MG CAP.ER.24H PO SCH (10:39)
[2022-11-13 11:33] LABS: Appearance,Urine Clear (Clear); Bilirubin,Urine Negative (Negative); Blood,Urine Negative (Negative); Color,Urine Yellow; Glucose,Urine (UA) Negative (Negative); Ketones,Urine 2+ (Negative); Leukocyte Esterase,Urine Small (Negative); Mucus,Urine Occasional /hpf; Nitrite,Urine Negative (Negative); PH, Urine 6.5 (5.0-8.0); Protein,Urine Trace (Negative); RBC,Urine 2 /hpf (0-5); Specific Gravity,Urine 1.024 (1.001-1.035); Squamous Epithelial Cell,Urine <1 /hpf (0-4); Urobilinogen,Urine <2.0 mg/dL (<2.0); WBC,Urine 9 /hpf (0-5)
--- NOTE | 2022-11-13 13:07 | P.PN ---
Progress Note - Text Progress Note Date: 11/13/22 Postoperative day #3 Patient is seen and examined today at bedside. The patient has some pain around the surgical site as expected. Pain is being controlled with medication. He is moving slightly better but he still unable to get out of bed on his own. He does not have bowel movement but is passing gas. He did have some nausea and vomiting yesterday but feels he may be able to eat today. He had his Miller removed again today and he is driving a voiding trial. Physical Exam Afebrile with stable vital signs Abdomen is soft nontender. Chest has good excursion deep and space expiration The incision site is clean dry and intact. No erythema there is no purulence. Extremities have not had neurologic change from prior to surgery. He has sustained dorsal flexion plantar flexion and EHL. He is able to lift his legs up off the vent. He feels his motion and his pain his legs is improving Calves and thighs were soft nontender without evidence of DVT. Assessment/Plan Postoperative day #3 status post minimally invasive decompression fusion L4 5 L5-S1 for his high-grade spondylolisthesis and severe spinal stenosis Urinary retention Patient is progressing as expected from the surgery. He is moving somewhat slowly but he is making some gains We will continue to increase the patient's mobilization with therapy. He is interested in the possibility of penitentiary or rehab which could happen on Tuesday. I discussed with him that he may turn a corner and be able to move more easily and eventually be a candidate for home with home health by that point as well. Hopefully he will be able to void on his own today with a voiding trial. It is not able to be may have to have his cath replaced. We will continue pain control with oral or IV medications. We'll continue to follow patient closely.
[2022-11-13 13:10] LABS: Basophils % (A) 0 %; Eosinophils # (A) 0.1 k/uL (0-0.7); Eosinophils % (A) 1 %; HCT 36.6 % (39.0-53.0); HGB 12.8 gm/dL (13.0-17.5); Lymphocytes # (A) 1.2 k/uL (1.0-4.8); Lymphocytes % (A) 13 %; MCH 33.2 pg (25.0-35.0); MCV 94.9 fL (80.0-100.0); Mean Platelet Volume 8.1; Monocytes # (A) 0.6 k/uL (0-1.0); Monocytes % (A) 6 %; Neutrophils # (A) 7.4 k/uL (1.3-7.7); Neutrophils % (A) 79 %; Platelet Count 159 k/uL (150-450); RBC 3.85 m/uL (4.30-5.90); RDW 12.7 % (11.5-15.5); WBC 9.3 k/uL (3.8-10.6)
--- NOTE | 2022-11-13 13:10 | P.PN ---
Subjective Progress Note Date: 11/13/22 This patient is a 67- year old male who is status-post L4-5 and L5-S1 posterior lateral decompression and fusion on 11/10/22. Today is post-operative day #3. Patient is examined bedside this morning. He states is pain has improved slightly compared to yesterday. He states he was able to ambulate in the [place] yesterday, although he has not been out of bed yet today. He is interested in discharging to rehab. Patient's connell catheter was re-inserted yesterday for urinary retention. No new complaints today. Vital signs stable. Objective - Vital Signs Vital signs: Vital Signs Temp 98.3 F 11/13/22 11:47 Pulse 75 11/13/22 11:47 Resp 20 11/13/22 11:47 BP 133/85 11/13/22 11:47 Pulse Ox 95 11/13/22 11:47 FiO2 Intake & Output 11/12/22 11/13/22 11/13/22 18:59 06:59 18:59 Intake Total 120 Output Total 400 375 Balance -400 -255 Intake: Oral 120 Output: Urine 400 375 Uretheral (Connell) 375 Other: Voiding Method Indwelling Catheter Indwelling Catheter Indwelling Catheter - Exam On examination, patient is sitting up in bed in no apparent distress. He is alert and orientated x3. On inspection of the low back, there are Optifoam dressings in place with a small amount dried blood on the dressing. No surrounding erythema, warmth. No signs of infection. Motor and sensory function intact of the bilateral lower extremities. There is decreased ROM of the right ankle due to chronic changes. Neurovascularly intact bilateral lower extremities. Calves are soft and nontender to palpation bilaterally. Connell catheter in place. - Labs CBC & Chem 7: 11/12/22 05:05 11/12/22 05:05 Labs: Abnormal Lab Results - Last 24 Hours (Table) 11/13/22 Range/Units 11:00 Urine Protein Trace H (Negative) Urine Ketones 2+ H (Negative) Ur Leukocyte Esterase Small H (Negative) Urine WBC 9 H (0-5) /hpf Urine Mucus Occasional H (None) /hpf Assessment and Plan Assessment: Status-post L4-5 and L5-S1 posterior lateral decompression and fusion on 11/10/22. Post-op day #3. Post-op urinary retention Plan: - Patient may able to continue to mobilize as tolerated out of bed. Physical therapy has been consulted to increase mobilization. - Nursing has changed Optifoam dressings this morning. - Continue pain management as needed. - Connell catheter will be discontinued this morning for a voiding trial. - Appreciate input from internal medicine for medical management. - Anticipate discharge to rehab.
[2022-11-13 13:24] LABS: African American GFR (CKD) >90 (>60 ml/min/1.73 sqM); Anion Gap 6 mmol/L; Blood Urea Nitrogen 16 mg/dL (9-20); Calcium 8.6 mg/dL (8.4-10.2); Carbon Dioxide 27 mmol/L (22-30); Chloride 99 mmol/L (98-107); Glucose 91 mg/dL (74-99); Non-African American GFR(CKD) >90 (>60 ml/min/1.73 sqM); Potassium 3.9 mmol/L (3.5-5.1); Sodium 132 mmol/L (137-145)
--- NOTE | 2022-11-13 13:33 | P.PN ---
Subjective Progress Note Date: 11/13/22 This is a pleasant 67-year-old patient who follows with Dr. Flavio Leon. Patient's had chronic low back pain. With radiation down the right leg with neuropathy. Patient today has undergone surgery by Dr. Ivey. Postprocedure having pain at the operative site. Laying in bed. Patient does take Inderal fo r tremors. And also takes Zyrtec for what appears to be ALLERGIC rhinitis. Currently no nausea vomiting. No chest pain or shortness of breath. Patient does drink 5-6 beers a day for many years. 11/11/2022: Sitting up in a chair. No lower back pain present. Some pain in the right leg. Miller catheter was taken out this morning. Pending to urinate. No nausea vomiting. Did eat a little bit. 11/12/2022: Sitting up in a chair. Last night patient went into DTs. Valium was started. Schedule. CIWA scale. This morning. Making a bit better. Tremors present. Did walk a bit. present. Valium cutback to 2.5 mg 3 times a day. She was given to continue. IV fluids. Having operative site pain. Miller catheter to be reinserted last night for retention. 11/13/2022 Patient has been followed by Dr. Sexton picked up service today. He is postoperative day #3 lateral decompression and fusion. Patient is resting in bed comfortably he is off IV pain medication at this time and reports the pain as tolerable on oral medications. Reports pain 5/10. Miller catheter was reinserted and remains at this time he does follow with a urologist Dr. Christian out of [place], with history of prostate cancer. He will be started on Flomax. Otherwise he is passing gas, no BM yet. He reports decreased diet with little to no appetite. His labs today show white count of 9.3, hemoglobin stable 12.8, sodium 132 and kidney function is normal. Urinalysis was checked due to urinary retention which is not suggestive of infection. Review of Systems Constitutional: Denied any fatigue denied any fever. Cardio vascular: denied any chest pain, palpitations Gastrointestinal: denied any nausea, vomiting, diarrhea Pulmonary: Denied any shortness of breath cough Neurologic denied any new focal deficits Reports weakness and low back pain All inpatient medications were reviewed and appropriate changes in these medications as dictated in the interval history and assessment and plan PHYSICAL EXAMINATION: GENERAL: The patient is alert and oriented x3, not in any acute distress. Well developed, well nourished. HEENT: Pupils are round and equally reacting to light. EOMI. No scleral icterus. No conjunctival pallor. Normocephalic, atraumatic. No pharyngeal erythema. No thyromegaly. CARDIOVASCULAR: S1 and S2 present. No murmurs, rubs, or gallops. PULMONARY: Chest is clear to auscultation, no wheezing or crackles. ABDOMEN: Soft, nontender, nondistended, normoactive bowel sounds. No palpable organomegaly. MUSCULOSKELETAL: No joint swelling or deformity. EXTREMITIES: No cyanosis, clubbing, or pedal edema. NEUROLOGICAL: Gross neurological examination did not reveal any focal deficits. SKIN: No rashes. Surgical incisions clean dry approximated. Dressings are rolled up need to be replaced. Assessment Postoperative day #3 decompression fusion and grafting for grade 3 spondylo-listhesis L5 through S1 Postoperative urinary retention Alcohol withdrawal syndrome continues on CIWA scale and Valium no acute withdrawals noted overnight Chronic tremors maintained on Inderal Chronic alcohol use History of prostate cancer with surgery GI prophylaxis DVT prophylaxis as per primary Full code Plan Continue pain management and bowel regimen Voiding trial per surgery Continue to increase activity level as tolerated Continue with incentive spirometer 10 x an hour while awake Ensure added for nutritional support and wound healing. Discharge planning [facility] swing bed vs. home with homecare The impression and plan of care has been dictated by Clemencia Pinto Nurse Practitioner as directed. Dr. Farzaneh MD I have performed a history and physical examination and medical decision making of this patient, discussed the same with the dictator, and agree with the dictators assessment and plan as written, documented as a scribe. Based on total visit time, I have performed more than 50% of this visit. Objective - Vital Signs Vital signs: Vital Signs Temp 97.8 F 11/13/22 07:46 Pulse 121 H 11/13/22 07:46 Resp 20 11/13/22 07:46 BP 126/86 11/13/22 07:46 Pulse Ox 97 11/13/22 07:46 FiO2 Intake & Output 11/12/22 11/13/22 11/13/22 18:59 06:59 18:59 Intake Total 120 Output Total 400 375 Balance -400 -255 Intake: Oral 120 Output: Urine 400 375 Uretheral (Miller) 375 Other: Voiding Method Indwelling Catheter Indwelling Catheter - Labs CBC & Chem 7: 11/13/22 12:46 11/13/22 12:46 Assessment and Plan Time with Patient: Less than 30
[2022-11-13] MEDS: CYCLOBENZAPRINE 10 MG TAB PO PRN (17:48)
[2022-11-14] MEDS: SODIUM CHLORIDE 0.9% 1,000 ML IV SCH ×2 (00:46→21:36)
[2022-11-14] MEDS: HYDROcodone/APAP 5-325MG 1 EACH TAB PO PRN ×3 (03:33→20:11)
[2022-11-14] MEDS: TAMSULOSIN 0.4 MG CAP.ER.24H PO SCH (08:14)
[2022-11-14] MEDS: diazePAM 5 MG TAB PO SCH ×3 (08:15→22:55)
[2022-11-14] MEDS: ASCORBIC ACID 500 MG TAB PO SCH (08:15)
[2022-11-14] MEDS: PROPRANOLOL LA 60 MG CAP.SA.24H PO SCH (08:15)
[2022-11-14] MEDS: SENNOSIDES-DOCUSATE SODIUM 1 EACH TAB PO SCH (08:15)
[2022-11-14] MEDS: LORATADINE 10 MG TAB PO SCH (08:15)
--- NOTE | 2022-11-14 09:53 | P.PN ---
Progress Note - Text Progress Note Date: 11/14/22 Postoperative day #4 Patient is seen and examined today at bedside. The patient has some pain around the surgical site as expected. Pain is being controlled with medication. He was able to stand up and walk to the bathroom yesterday. He has not yet had a bowel movement but he has been able to void on his own. He still has great he was getting in and out of bed on his own and does not feel safe with this. His leg pain is improving well. Physical Exam Afebrile with stable vital signs Abdomen is soft nontender. Chest has good excursion deep and space expiration The incision site is clean dry and intact. No erythema there is no purulence. Extremities have not had neurologic change from prior to surgery. He has sustained dorsal to plantar flexion and EHL intact. Calves and thighs were soft nontender without evidence of DVT. Assessment/Plan Postoperative day #4 status was millimeters to decompression fusion L4 5 L5-S1 first site great spondylosis with spinal stenosis and lower extremity radiculopathy Patient is progressing as expected from the surgery. His movement has been somewhat slow but he is making progress with this. He has limited help at home and may need [facility] before going home. This will likely have tomorrow. He is voiding on his own now and the Miller has been discontinued. His oral intake is improving gradually. We will continue to increase the patient's mobilization with therapy. We will continue pain control with oral or IV medications. We'll continue to follow patient closely.
--- NOTE | 2022-11-14 17:03 | P.PN ---
Subjective Progress Note Date: 11/14/22 This is a pleasant 67-year-old patient who follows with Dr. Flavio Leon. Patient's had chronic low back pain. With radiation down the right leg with neuropathy. Patient today has undergone surgery by Dr. Ivey. Postprocedure having pain at the operative site. Laying in bed. Patient does take Inderal fo r tremors. And also takes Zyrtec for what appears to be ALLERGIC rhinitis. Currently no nausea vomiting. No chest pain or shortness of breath. Patient does drink 5-6 beers a day for many years. 11/11/2022: Sitting up in a chair. No lower back pain present. Some pain in the right leg. Miller catheter was taken out this morning. Pending to urinate. No nausea vomiting. Did eat a little bit. 11/12/2022: Sitting up in a chair. Last night patient went into DTs. Valium was started. Schedule. CIWA scale. This morning. Making a bit better. Tremors present. Did walk a bit. present. Valium cutback to 2.5 mg 3 times a day. She was given to continue. IV fluids. Having operative site pain. Miller catheter to be reinserted last night for retention. 11/13/2022 Patient has been followed by Dr. Sexton picked up service today. He is postoperative day #3 lateral decompression and fusion. Patient is resting in bed comfortably he is off IV pain medication at this time and reports the pain as tolerable on oral medications. Reports pain 5/10. Miller catheter was reinserted and remains at this time he does follow with a urologist Dr. Christian out of [place], with history of prostate cancer. He will be started on Flomax. Otherwise he is passing gas, no BM yet. He reports decreased diet with little to no appetite. His labs today show white count of 9.3, hemoglobin stable 12.8, sodium 132 and kidney function is normal. Urinalysis was checked due to urinary retention which is not suggestive of infection. 11/14/2022 Patient is evaluated today he is postoperative day #4 lateral decompression and fusion. Miller catheter has been removed without incident he has no further urinary retention he is started on Flomax and recommend to continue some discharge. He does have history of prostate cancer with cryotherapy he does have his prostate still. He has had a bowel movement today. He reports increased diet overall he is feeling better and pain is controlled. He will be discharged likely to subacute rehab tomorrow. Review of Systems Constitutional: Denied any fatigue denied any fever. Cardio vascular: denied any chest pain, palpitations Gastrointestinal: denied any nausea, vomiting, diarrhea Pulmonary: Denied any shortness of breath cough Neurologic denied any new focal deficits Reports weakness and low back pain All inpatient medications were reviewed and appropriate changes in these medications as dictated in the interval history and assessment and plan PHYSICAL EXAMINATION: GENERAL: The patient is alert and oriented x3, not in any acute distress. Well developed, well nourished. HEENT: Pupils are round and equally reacting to light. EOMI. No scleral icterus. No conjunctival pallor. Normocephalic, atraumatic. No pharyngeal erythema. No thyromegaly. CARDIOVASCULAR: S1 and S2 present. No murmurs, rubs, or gallops. PULMONARY: Chest is clear to auscultation, no wheezing or crackles. ABDOMEN: Soft, nontender, nondistended, normoactive bowel sounds. No palpable organomegaly. MUSCULOSKELETAL: No joint swelling or deformity. EXTREMITIES: No cyanosis, clubbing, or pedal edema. NEUROLOGICAL: Gross neurological examination did not reveal any focal deficits. SKIN: No rashes. Surgical incisions clean dry approximated. Dressings are rolled up need to be replaced. Assessment Postoperative day #4 decompression fusion and grafting for grade 3 spondylo- listhesis L5 through S1 Postoperative urinary retention, resolved the urinary catheter has been removed. Alcohol withdrawal syndrome continues on CIWA scale and Valium no acute withdrawals noted overnight Chronic tremors maintained on Inderal Chronic alcohol use History of prostate cancer with surgery GI prophylaxis DVT prophylaxis as per primary Full code Plan Continue pain management and bowel regimen Continue on flomax and monitor for urinary retention. Continue to increase activity level as tolerated Continue with incentive spirometer 10 x an hour while awake Ensure added for nutritional support and wound healing. Discharge planning [facility] swing bed vs. home with homecare patient to discharge in the next 24 hours. The impression and plan of care has been dictated by Clemencia Pinto Nurse Practitioner as directed. Dr. Farzaneh MD I have performed a history and physical examination and medical decision making of this patient, discussed the same with the dictator, and agree with the dictators assessment and plan as written, documented as a scribe. Based on total visit time, I have performed more than 50% of this visit. Objective - Vital Signs Vital signs: Vital Signs Temp 97.8 F 11/14/22 07:35 Pulse 67 11/14/22 07:35 Resp 15 11/14/22 07:35 BP 137/95 11/14/22 07:35 Pulse Ox 97 11/14/22 07:35 FiO2 Intake & Output 11/13/22 11/14/22 11/14/22 18:59 06:59 18:59 Other: Voiding Method Indwelling Catheter Toilet # Voids 1 - Labs CBC & Chem 7: 11/13/22 12:46 11/13/22 12:46 Labs: Abnormal Lab Results - Last 24 Hours (Table) 11/13/22 11/13/22 11/13/22 Range/Units 11:00 12:46 12:46 RBC 3.85 L (4.30-5.90) m/uL Hgb 12.8 L (13.0-17.5) gm/dL Hct 36.6 L (39.0-53.0) % Sodium 132 L (137-145) mmol/L Urine Protein Trace H (Negative) Urine Ketones 2+ H (Negative) Ur Leukocyte Esterase Small H (Negative) Urine WBC 9 H (0-5) /hpf Urine Mucus Occasional H (None) /hpf Assessment and Plan Time with Patient: Less than 30
[2022-11-15] MEDS: HYDROcodone/APAP 5-325MG 1 EACH TAB PO PRN ×2 (02:03→09:16)
[2022-11-15] MEDS: diazePAM 5 MG TAB PO SCH (06:28)
[2022-11-15 07:18] VITALS: BP 157/89; PULSE 89; RESP 20; TEMP 98.6
--- NOTE | 2022-11-15 08:49 | P.DS ---
Providers Date of admission: 11/10/22 05:50 Expected date of discharge: 11/15/22 Attending physician: Isabela Serra Consults: 11/10/22 12:21 Consult Physician Routine Consulting Provider: Milton Sexton Consult Reason/Comments: Medical management Do you want consulting provider notified?: Yes Primary care physician: Osito Leon - Discharge Diagnosis(es) (1) Status post lumbar spinal fusion Current Visit: Yes Status: Acute (2) Spondylolisthesis, lumbosacral region Current Visit: Yes Status: Acute (3) Spondylolysis of lumbar region Current Visit: Yes Status: Acute (4) Lumbar facet arthropathy Current Visit: Yes Status: Acute (5) Lumbar degenerative disc disease Current Visit: Yes Status: Acute (6) Lumbar back pain with radiculopathy affecting right lower extremity Current Visit: Yes Status: Acute (7) Lumbar stenosis Current Visit: Yes Status: Acute (8) History of prostate cancer Current Visit: Yes Status: Acute (9) Tremor Current Visit: Yes Status: Acute Hospital Course: This is a pleasant 67-year-old male who presented with L5-S1 grade 3 spondylolisthesis, L4-5 and L5-S1 severe spinal stenosis, low back pain with l ower extremity radiculopathy, lumbar degenerative disc disease, lumbar facet arthrosis, and lumbar spondylolysis who failed outpatient conservative therapy. He was admitted for an L4-5 and L5-S1 minimally invasive posterior lateral decompression and fusion with transforaminal lumbar interbody fusion. He has been progressing slowly postoperatively but has continued to have some improvement. He continues to ambulate with assistance of a walker. He continues have some pain radiating towards his right hip with ambulation. He does have some difficulty getting in and out of bed. He continues to feel he will have difficulty managing at home. He's been evaluated for discharge to a rehabilitation facility. He is ready for discharge today. He was expressing urinary retention postoperatively, but this has improved. He is voiding without difficulty. He has had a bowel movement. He is eating and voiding without difficulty. Condition on day of discharge stable. Patient will be discharged to rehabilitation facility. Patient was cleared preoperatively for surgery by Dr. Leon. Patient currently denies any nausea, vomiting, fever, or chills. Surgical dressings have been removed. Patient may shower without dressings intact. Patient should refrain from driving until at least after their first follow-up appointment in the office. Patient should avoid excessive bending, lifting, and twisting; no lifting greater than 10 pounds. MAPS has been reviewed on 11/12/2022. An "Opiod Start Talking" Form has been signed and placed in the patient's chart. A prescription has been written for hydrocodone 7.5 mg/25 mg, 1 tab every 6 hours as needed for acute pain, dispense #28. Patient should discontinue use of tramadol while taking hydrocodone. Patient is given a prescription for baclofen 10 mg, 1 tab, 3 times a day, as needed for muscle spasm, dispensed #90. Patient is given a prescription for Senokot-S, 1 tab twice a day, as needed for constipation, dispensed #60. Prescriptions are printed, signed, and placed in the patient's chart in anticipation for possible discharged to a rehabilitation facility. Patient should avoid anti-inflammatory medications over the next 6 weeks postoperatively. Patient's other medical diagnoses include postoperative urinary retention resolved, history of prostate cancer, and chronic tremors. Physical Exam on day of discharge: Status post surgical day number 5 Patient is awake, alert, and oriented 3 Vital signs stable Good chest excursion with deep inspiration and expiration Abdomen soft nontender Dorsiflexion, plantarflexion, and extensor hallucis longus positive sustained bilaterally No signs or symptoms of DVT; no calf pain; pneumatic cuffs currently intact bilateral lower extremities Chronic changes at the right ankle Optifoam dressings have been removed over the lumbar spine and right iliac crest; no erythema, purulence, or signs of infection No active drainage from surgical sites over the lumbar spine and right iliac crest No significant pain with palpation over the surgical sites Neurovascularly intact bilaterally lower extremities Procedures: L4-5 and L5-S1 minimally invasive posterior lateral decompression and fusion with transforaminal lumbar interbody fusion Patient Condition at Discharge: Stable Plan - Discharge Summary Discharge Rx Participant: No New Discharge Prescriptions: New Sennosides-Docusate Sodium [Senokot-S] 1 tab PO BID PRN #60 tablet PRN Reason: Constipation Baclofen 10 mg PO TID PRN #90 tab PRN Reason: Spasms HYDROcodone/APAP 7.5-325MG [[place] 7.5-325] 1 each PO Q6HR PRN #28 tab PRN Reason: Pain No Action Propranolol HCl [Inderal] 60 mg PO DAILY Cetirizine HCl [Zyrtec] 10 mg PO DAILY traMADol HCL 50 mg PO BID PRN PRN Reason: Pain Ascorbic Acid [Vitamin C chew] 500 mg PO DAILY Discharge Medication List Ascorbic Acid [Vitamin C chew] 500 mg PO DAILY 06/24/21 [History] Propranolol HCl [Inderal] 60 mg PO DAILY 06/24/21 [History] Cetirizine HCl [Zyrtec] 10 mg PO DAILY 11/04/22 [History] traMADol HCL 50 mg PO BID PRN 11/04/22 [History] Baclofen 10 mg PO TID PRN #90 tab 11/12/22 [Rx] HYDROcodone/APAP 7.5-325MG [[place] 7.5-325] 1 each PO Q6HR PRN #28 tab 11/12/22 [Rx] Sennosides-Docusate Sodium [Senokot-S] 1 tab PO BID PRN #60 tablet 11/12/22 [Rx] Follow up Appointment(s)/Referral(s): Jayant Mchugh, PAC [PHYSICIAN [employer] BUSINESS SALES REPRESENTATIVE] - 2 Weeks (Patient may follow-up with Jayant Mchugh PA-C or Dr. Jerson Serra at [facility] in 2-3 weeks following discharge.) Activity/Diet/Wound Care/Special Instructions: 1. Patient may shower without a dressing intact. 2. Patient should refrain from driving until at least after their first follow- up appointment in the office. 3. Patient should avoid excessive bending, twisting, lifting; avoid overhead lifting; no lifting greater than 10 pounds 4. Take medications as prescribed 5. Patient should avoid anti-inflammatory medications over the next 6 weeks postoperatively 6. Do not soak in tub Discharge Disposition: TRANSFER TO SNF/ECF
[2022-11-15] MEDS: ASCORBIC ACID 500 MG TAB PO SCH (09:10)
[2022-11-15] MEDS: TAMSULOSIN 0.4 MG CAP.ER.24H PO SCH (09:10)
[2022-11-15] MEDS: LORATADINE 10 MG TAB PO SCH (09:10)
[2022-11-15] MEDS: SENNOSIDES-DOCUSATE SODIUM 1 EACH TAB PO SCH (09:10)
[2022-11-15] MEDS: PROPRANOLOL LA 60 MG CAP.SA.24H PO SCH (09:11)
--- NOTE | 2022-11-15 22:12 | P.PN ---
Progress Note - Text Progress Note Date: 11/15/22 - Chief Complaint Lumbar surgery Hospital course: This is a pleasant 67-year-old patient who follows with Dr. Flavio Leon. Patient's had chronic low back pain. With radiation down the right leg with neuropathy. Patient today has undergone surgery by Dr. Ivey. Postprocedure having pain at the operative site. Laying in bed. Patient does take Inderal for tremors. And also takes Zyrtec for what appears to be ALLERGIC rhinitis. Currently no nausea vomiting. No chest pain or shortness of breath. Patient does drink 5-6 beers a day for many years. 11/11/2022: Sitting up in a chair. No lower back pain present. Some pain in the right leg. Miller catheter was taken out this morning. Pending to urinate. No nausea vomiting. Did eat a little bit. 11/12/2022: Sitting up in a chair. Last night patient went into DTs. Valium was started. Schedule. CIWA scale. This morning. Making a bit better. Tremors present. Did walk a bit. present. Valium cutback to 2.5 mg 3 times a day. She was given to continue. IV fluids. Having operative site pain. Miller catheter to be reinserted last night for retention. 11/13/2022 Patient has been followed by Dr. Sexton picked up service today. He is postoperative day #3 lateral decompression and fusion. Patient is resting in bed comfortably he is off IV pain medication at this time and reports the pain as tolerable on oral medications. Reports pain 5/10. Miller catheter was reinserted and remains at this time he does follow with a urologist Dr. Christian out of [place], with history of prostate cancer. He will be started on Flomax. Otherwise he is passing gas, no BM yet. He reports decreased diet with little to no appetite. His labs today show white count of 9.3, hemoglobin stable 12.8, sodium 132 and kidney function is normal. Urinalysis was checked due to urinary retention which is not suggestive of infection. 11/14/2022 Patient is evaluated today he is postoperative day #4 lateral decompression and fusion. Miller catheter has been removed without incident he has no further urinary retention he is started on Flomax and recommend to continue some discharge. He does have history of prostate cancer with cryotherapy he does have his prostate still. He has had a bowel movement today. He reports increased diet overall he is feeling better and pain is controlled. He will be discharged likely to subacute rehab tomorrow. 11/15/2022: Reclining in bed. Feeling much better. Some pain at the operative site. Making urine. Valium has been discontinued. Patient counseled about complete cessation about alcohol. Patient to follow-up with PCP. Questions answered Medications reviewed Past medical history to include: Tremors, ALLERGIC rhinitis, prostate cancer, Social history: Drinks 5-6 beers a day. . 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 No smoking. Physical examination: VITAL SIGNS: At 8.6, 89, 20, 1 5789, 97% room air GENERAL: Reclining in bed comfortable EYES: Pupils equal. Conjunctiva normal. HEENT: External appearance of nose and ears normal, oral cavity grossly normal. NECK: JVD not raised; masses not palpable. HEART: First and second heart sounds are normal; no edema. LUNGS: Respiratory rate normal; clear to auscultation. ABDOMEN: Soft, nontender, liver spleen not palpable, no masses palpable. PSYCH: Slightly slow to respond but able to answer simple questions. MUSCULOSKELETAL:No Clubbing/cyanosis;muscles-grossly intact. Dressing over the lower lumbar area incision site INVESTIGATIONS, reviewed in the clinical context: November 13: White count 9.3 hemoglobin 12.8 platelets 159 potassium 3.9 creatinine 0.68 November 12: White count 1.1 hemoglobin 12.2 platelets 153 progression 3.9 creatinine 0.64 sodium 1:30. AST 43. ALT 24. Total bilirubin 1.6. 11/11/2022: White count 13.4 hemoglobin 12.5 platelets 165 potassium 4.3 creatinine 0.69 10/29/2022: White count 7.0 hemoglobin 14.4 platelets 194 sodium 141 potassium 4.3 BUN 34 and 5 creatinine 0.8 LDL 86 Assessment and plan: -Grade 3 spondylolisthesis, L5-S1, severe spinal stenosis L4, L5-S1, low back pain, lower extremity radiculopathy,, DJD, facet arthrosis, spondylosis. Operative repair by Dr. Serra including decompression, fusion, grafting. Pain management -Alcohol withdrawal syndrome: Improved Stop Valium. -Tremors, chronic Inderal -Probable ALLERGIC rhinitis Zyrtec -Alcohol use disorder, drinks 5-6 beers a day LFTs normal. Discussed with patient. Consult. Discussed with patient. Follow-up with PCP point discharge. Valium discontinued. Thank you Dr. Serra
== END 2022-11-15 13:30 | DRG 454 ==
LOC: 2ORMAIN 05:50 → 5NMEDONC 13:18
PROVIDERS: ADMIT Orthopaedic Surgery Orthopaedic Surgery of the Spine; ATTEND Orthopaedic Surgery Orthopaedic Surgery of the Spine
PROC: HZ2ZZZZ Detoxification Services for Substance Abuse Treatment (ICD-10-PCS; 2022-11-10)
PROC: 0ST20ZZ Resection of Lumbar Vertebral Disc, Open Approach (ICD-10-PCS; principal; 2022-11-10 07:30)
PROC: 0SG30AJ Fusion of Lumbosacral Joint with Interbody Fusion Device, Posterior Approach, Anterior Column, Open Approach (ICD-10-PCS; principal; 2022-11-10 07:30)
PROC: 30243H0 Transfusion of Autologous Whole Blood into Central Vein, Percutaneous Approach (ICD-10-PCS; principal; 2022-11-10 07:30)
PROC: 01NR0ZZ Release Sacral Nerve, Open Approach (ICD-10-PCS; principal; 2022-11-10 07:30)
PROC: 0SG3071 Fusion of Lumbosacral Joint with Autologous Tissue Substitute, Posterior Approach, Posterior Column, Open Approach (ICD-10-PCS; principal; 2022-11-10 07:30)
PROC: 01NB0ZZ Release Lumbar Nerve, Open Approach (ICD-10-PCS; principal; 2022-11-10 07:30)
PROC: 07DS3ZZ Extraction of Vertebral Bone Marrow, Percutaneous Approach (ICD-10-PCS; principal; 2022-11-10 07:30)
PROC: 0SB40ZZ Excision of Lumbosacral Disc, Open Approach (ICD-10-PCS; principal; 2022-11-10 07:30)
PROC: 0SG00AJ Fusion of Lumbar Vertebral Joint with Interbody Fusion Device, Posterior Approach, Anterior Column, Open Approach (ICD-10-PCS; principal; 2022-11-10 07:30)
DX: M43.17 Spondylolisthesis, lumbosacral region (principal); F10.139 Alcohol abuse with withdrawal, unspecified; M41.50 Other secondary scoliosis, site unspecified; M51.16 Intervertebral disc disorders with radiculopathy, lumbar region; M48.061 Spinal stenosis, lumbar region without neurogenic claudication; M47.26 Other spondylosis with radiculopathy, lumbar region; M43.16 Spondylolisthesis, lumbar region; G89.29 Other chronic pain; G62.9 Polyneuropathy, unspecified; R25.1 Tremor, unspecified; J30.9 Allergic rhinitis, unspecified; R33.9 Retention of urine, unspecified; M48.07 Spinal stenosis, lumbosacral region; Z79.899 Other long term (current) drug therapy; Z85.46 Personal history of malignant neoplasm of prostate
CPT/HCPCS: 72100; 80048; 80053; 81001; 83735; 85025; 86850; 86891; 86900; 86901; 94760